=== PATIENT | female | born 1970 | race African-American/Black ===

== ENCOUNTER 2022-03-23 11:35 | Outpatient (CLI) | payer OTHER | END 2022-03-23 11:36 | disposition home or self-care (01) | LOC: CSHRAD 11:35 | PROVIDERS: ATTEND Student in an Organized Health Care Education/Training Program | DX: M54.40 Lumbago with sciatica, unspecified side (principal); Z98.890 Other specified postprocedural states; M43.16 Spondylolisthesis, lumbar region | CPT/HCPCS: 72100 ==

== ENCOUNTER 2023-02-23 11:37 | Emergency (ER) | payer SELFPAY ==
[2023-02-23] MEDS ORDERED: predniSONE 20 MG TAB ONE (13:22)
== END 2023-02-23 13:25 | disposition home or self-care (01) ==
LOC: CSHERS 11:37
DX: T78.40XA Allergy, unspecified, initial encounter (principal); F17.210 Nicotine dependence, cigarettes, uncomplicated
CPT/HCPCS: 99282; J7512

== ENCOUNTER 2024-09-07 09:11 | Emergency (ER) | payer OTHER ==
[2024-09-07] MEDS ORDERED: Ipratropium/Albuterol 3 ML NEB ONE (09:23)
[2024-09-07] MEDS ORDERED: predniSONE 20 MG TAB ONE (09:29)
== END 2024-09-07 10:39 | disposition home or self-care (01) ==
LOC: CSHERS 09:11
DX: J20.9 Acute bronchitis, unspecified (principal); F17.210 Nicotine dependence, cigarettes, uncomplicated
CPT/HCPCS: 71045; 93005; 94640; J7512; J7620